=== PATIENT | female | born 1985 | race Caucasian/White ===

== ENCOUNTER → 2020-01-01 09:00 | Outpatient (BNVA) | payer SELFPAY | PROVIDERS: Referring Provider Family Medicine; Visit Provider Internal Medicine | DX: E05.00 Thyrotoxicosis with diffuse goiter without thyrotoxic crisis or storm (principal) | CPT/HCPCS: 99203 ==

== ENCOUNTER → 2020-06-08 09:47 | Outpatient (BNVA) | payer OTHER, SELFPAY | PROVIDERS: Visit Provider Internal Medicine | DX: E04.1 Nontoxic single thyroid nodule (principal); E05.00 Thyrotoxicosis with diffuse goiter without thyrotoxic crisis or storm; E06.3 Autoimmune thyroiditis; F99 Mental disorder, not otherwise specified | CPT/HCPCS: 99214 ==

== ENCOUNTER 2020-07-02 14:59 | Outpatient (CLI) | payer OTHER, SELFPAY ==
--- NOTE | 2020-07-02 15:00 | USR_ITS ---
PROCEDURE INFORMATION: Exam: US Soft Tissue Head and Neck, Thyroid Exam date and time: 07/02/2020 3:37 PM Age: 35 years old Clinical indication: Other: Dx of graves several years ago; Additional info: Assess for nodule, matias scan showed fluid collection? No masses either cystic or solid TECHNIQUE: Imaging protocol: Real-time ultrasound scan of the neck with image documentation. Exam focused on the thyroid. Total images: 40 COMPARISON: No relevant prior studies available. FINDINGS: Right thyroid lobe: No nodules. Normal thyroid parenchyma echogenicity. No hypervascularity. No visible colloid cyst. Right thyroid measures 3.2 cm x 1.3 cm x 1.7 cm. Left thyroid lobe: No nodules. Normal thyroid parenchyma echogenicity. No hypervascularity. No visible colloid cyst. Left thyroid measures 3.5 cm x 1.2 cm x 1.5 cm. Isthmus: No nodules. Isthmus measures 4 mm. US/US thyroid [id number] IMPRESSION: 1. Unremarkable thyroid. 2. ACR TI-RADS 0
== END 2020-07-02 15:00 | disposition home or self-care (01) ==
LOC: US 15:01
PROVIDERS: PCP Family Medicine; Visit Provider Internal Medicine
DX: E04.9 Nontoxic goiter, unspecified (principal)
CPT/HCPCS: 76536

== ENCOUNTER → 2020-12-07 09:29 | Outpatient (BNVA) | payer OTHER, SELFPAY | PROVIDERS: Visit Provider Internal Medicine | DX: E06.3 Autoimmune thyroiditis (principal); E05.00 Thyrotoxicosis with diffuse goiter without thyrotoxic crisis or storm; E04.9 Nontoxic goiter, unspecified; F99 Mental disorder, not otherwise specified; R13.10 Dysphagia, unspecified; F17.210 Nicotine dependence, cigarettes, uncomplicated | CPT/HCPCS: 99214 ==

== ENCOUNTER 2021-03-09 11:56 | Outpatient (CLI) | payer OTHER, SELFPAY ==
[2021-03-09 13:02] LABS: Free T4 Free Thyroxine 0.97 ng/dL (0.82-1.77); Thyroid Stimulating Hormone 2.75 uIU/mL (0.27-4.20)
[2021-03-10 09:38] LABS: T3 Total 152 ng/dL (76-181)
== END 2021-03-09 11:57 | disposition home or self-care (01) ==
LOC: LAB 12:12
PROVIDERS: PCP Family Medicine; Visit Provider Internal Medicine
DX: E05.00 Thyrotoxicosis with diffuse goiter without thyrotoxic crisis or storm (principal); E06.3 Autoimmune thyroiditis
CPT/HCPCS: 84439; 84443; 84480

== ENCOUNTER → 2021-06-20 13:54 | Outpatient (BNVA) | payer OTHER, SELFPAY | PROVIDERS: PCP Family Medicine; Visit Provider Internal Medicine | DX: E06.3 Autoimmune thyroiditis (principal); E04.9 Nontoxic goiter, unspecified; E05.00 Thyrotoxicosis with diffuse goiter without thyrotoxic crisis or storm | CPT/HCPCS: 84439; 84443; 84480 ==

== ENCOUNTER → 2022-03-21 13:42 | Outpatient (BNVA) | payer MEDICAID, SELFPAY | PROVIDERS: PCP Family Medicine; Visit Provider Internal Medicine | DX: E03.9 Hypothyroidism, unspecified (principal); E06.3 Autoimmune thyroiditis; E05.00 Thyrotoxicosis with diffuse goiter without thyrotoxic crisis or storm; B37.0 Candidal stomatitis; R63.5 Abnormal weight gain; Z68.32 Body mass index [BMI] 32.0-32.9, adult; Z79.890 Hormone replacement therapy | CPT/HCPCS: 36415; 84439; 84443; 99214 ==

== ENCOUNTER → 2023-04-17 11:31 | Outpatient (BNVA) | payer MEDICAID, SELFPAY | PROVIDERS: PCP Family Medicine; Visit Provider Internal Medicine | DX: E03.9 Hypothyroidism, unspecified (principal); E06.3 Autoimmune thyroiditis; E04.9 Nontoxic goiter, unspecified; E05.00 Thyrotoxicosis with diffuse goiter without thyrotoxic crisis or storm; B37.0 Candidal stomatitis; R63.5 Abnormal weight gain; Z79.890 Hormone replacement therapy; Z68.30 Body mass index [BMI] 30.0-30.9, adult | CPT/HCPCS: 99214 ==

== ENCOUNTER → 2023-10-19 10:41 | Outpatient (BNVA) | payer MEDICAID, SELFPAY | PROVIDERS: PCP Family Medicine; Visit Provider Internal Medicine | DX: E06.3 Autoimmune thyroiditis; E05.00 Thyrotoxicosis with diffuse goiter without thyrotoxic crisis or storm; E04.9 Nontoxic goiter, unspecified; R63.5 Abnormal weight gain; Z79.890 Hormone replacement therapy; Z68.30 Body mass index [BMI] 30.0-30.9, adult | CPT/HCPCS: 99214 ==

== ENCOUNTER → 2024-09-11 13:38 | Outpatient (BNVA) | payer MEDICAID, SELFPAY | PROVIDERS: PCP Family Medicine; Visit Provider Internal Medicine | DX: E03.9 Hypothyroidism, unspecified (principal); E04.9 Nontoxic goiter, unspecified; E06.3 Autoimmune thyroiditis; E05.00 Thyrotoxicosis with diffuse goiter without thyrotoxic crisis or storm; B37.0 Candidal stomatitis; R63.5 Abnormal weight gain | CPT/HCPCS: 84439; 84443; 99214 ==